=== PATIENT | male | born 2000 | race Hispanic/Latino ===

== ENCOUNTER → 2025-02-15 | Outpatient (REF) | payer OTHER ==
[2025-02-15 08:58] LABS: SEMEN APPEARANCE OPAQUE (OPAQUE); SEMEN VISCOSITY LIQUID (LIQUID); SEMEN VOLUME 3.2 ml (2.0-5.0)
[2025-02-15 08:59] LABS: WBC CONCENTRATION <=1 M/ml (<=1 M/ml)
[2025-02-15 09:00] LABS: SPERM CONCENTRATION 104.3 M/ml (>=15.0); TOTAL PROGRESSIVE SPERM 116.3 M/Ejac.
== END ==
LOC: M LAB REF 08:44
DX: Z31.41 Encounter for fertility testing (principal)